=== PATIENT | male | born 1990 | race Caucasian/White ===

== ENCOUNTER 2016-11-23 21:40 | Emergency (ER) | payer SELFPAY ==
[~2016-11-23] VITALS: Ht 190.5 cm; Wt 82.0 kg
[2016-11-23 22:06] LABS: DAU SCREEN DISCLAIMER
[2016-11-23] MEDS ORDERED: NICOTINE 21 MG/24 HR PATCH.TD24 ONE (22:17)
[2016-11-23] MEDS ORDERED: LORazepam 2 MG/ML, 1ML ONE (22:17)
[2016-11-23 22:20] LABS: ASPARTATE AMINO TRANSFERASE 15 U/L (15-37); BLOOD UREA NITROGEN 6 mg/dL (7-18)
[2016-11-23 22:24] LABS: ACETAMINOPHEN < 2 mcg/mL (10-30)
[2016-11-23] MEDS ORDERED: NICOTINE 14MG/24 HR PATCH.TD24 TD ONE (22:30)
[2016-11-23] MEDS ORDERED: NICOTINE 21 MG/24 HR PATCH.TD24 TD ONE (22:30)
[2016-11-23] MEDS ORDERED: LORazepam 2 MG/ML, 1ML IM ONE (22:30)
[2016-11-24 14:15] VITALS: BP 133/87
== END 2016-11-24 14:18 | disposition home or self-care (01) ==
LOC: ED 11-24 01:32
DX: R45.851 Suicidal ideations (principal); F10.229 Alcohol dependence with intoxication, unspecified; F17.200 Nicotine dependence, unspecified, uncomplicated
CPT/HCPCS: 36415; 80053; 80307; 80329; 85025; 96372; 99284; J2060; G0480

== ENCOUNTER 2018-01-14 08:35 | Emergency (ER) | payer SELFPAY ==
[~2018-01-14] VITALS: Ht 190.5 cm; Wt 77.7 kg
[2018-01-14 10:03] LABS: BASOPHILS # (AUTO) 0.06 x10^3/uL (0-0.1); BASOPHILS % (AUTO) 1 % (0-1); EOSINOPHILS # (AUTO) 0.08 x10^3/uL (0-0.4); EOSINOPHILS % (AUTO) 1 % (1-7); LYMPHOCYTES # (AUTO) 1.14 x10^3/uL (1-3.4); LYMPHOCYTES % (AUTO) 9 % (22-44); MD NO; MEAN CORPUSCULAR HEMOGLOBIN 32.2 pg (27.5-34.5); MEAN CORPUSCULAR HGB CONC 34.5 g/dL (33.2-36.2); MEAN CORPUSCULAR VOLUME 93.3 fL (81-97); MEAN PLATELET VOLUME 7.3 fL (7.4-10.4); MONOCYTES # (AUTO) 1.23 x10^3/uL (0.2-0.8); MONOCYTES % (AUTO) 10 % (2-9); NEUTROPHILS # (AUTO) 9.63 x10^3/uL (1.8-6.8); NEUTROPHILS % (AUTO) 79 % (42-75); PLATELET COUNT 411 x10^3/uL (130-400); RED BLOOD COUNT 5.16 x10^6/uL (4.38-5.82); RED CELL DISTRIBUTION WIDTH 13.2 % (9.4-14.8)
[2018-01-14 10:04] LABS: HCT (SEDRATE) 48.1 % (39.2-51.8)
[2018-01-14 10:12] LABS: ALBUMIN 3.5 g/dL (3.4-5.0); ANION GAP 8 mmol/L (5-15); CALCIUM 9.6 mg/dL (8.5-10.1); CHLORIDE 107 mmol/L (98-107); CREATININE 0.77 mg/dL (0.7-1.3)
[2018-01-14 10:31] VITALS: BP 129/86
[2018-01-14] MEDS ORDERED: NAPR220C2 PO (10:31)
[2018-01-14] MEDS ORDERED: IBUP-1623 PO (10:31)
[2018-01-15 15:32] LABS: ANA SCREEN NEGATIVE (Negative)
== END 2018-01-14 12:08 | disposition home or self-care (01) ==
LOC: ED 11:45
DX: M25.522 Pain in left elbow (principal); M79.671 Pain in right foot; F17.200 Nicotine dependence, unspecified, uncomplicated; F32.9 Major depressive disorder, single episode, unspecified
CPT/HCPCS: 36415; 80048; 82040; 84550; 85025; 85651; 86038; 86063; 86430; 99285